=== PATIENT | female | born 1950 | race Caucasian/White ===

== ENCOUNTER 2017-01-21 15:04 | Emergency (ER) | payer OTHER ==
[~2017-01-21 15:04] MED LIST: AZITHROMYCIN 250 MG TAB PO SCH
[2017-01-21 15:14] VITALS: RESP 18
[2017-01-21] MEDS ORDERED: IPRATROPIUM/ALBUTEROL 3 ML DEYVIAL IH ONE (16:11)
--- NOTE | 2017-01-21 16:16 | EDPHY ---
H & P Time Seen by Provider: 01/21/17 16:01 HPI/ROS: HPI Cough, congestion, homeless. 66-year-old female on foot. She complains of an ongoing nonproductive cough and nasal congestion with chest congestion for the last 2-3 weeks. She reports that she was seen at an emergency department down in [place] for this same condition several days ago. He is currently homeless. She has not had a fever. She states also that she feels dirty and has no change of clothes. She denies any other complaints. ROS: Constitutional: No fever, no chills. No weakness. As above. Eyes: No discharge. No changes in vision. ENT: No sore throat. As above. Respiratory: As above. Cardiac: No chest pain, no palpitations. Gastrointestinal: No abdominal pain, no vomiting, no diarrhea. Genitourinary: No hematuria. No dysuria or increased frequency with urination. Musculoskeletal: No back pain. No neck pain. No myalgias or arthralgias. Skin: No rashes. Neurological: No headache. No focal weakness or altered sensation. Past medical history: Hypothyroid. She is not on any medications at this time except for a Synthroid. She was not given antibiotics during her emergency department visit down in [place]. Social history: History of smoking. Homeless. Physical Exam: General Appearance: Alert, no distress. Disheveled. This patient is responding to questions appropriately and in full sentences. This patient appears well-hydrated and well-nourished. Eyes: Pupils equal and round no pallor or injection. No lid edema, erythema or injection. ENT, Mouth: Mucous membranes are moist. The pharyngeal tissues are unremarkable. No edema or swelling. No asymmetry suggestive of abscess. No erythema or exudates. Respiratory: There are no retractions, lungs are clear to auscultation with good air movement bilaterally. No tachypnea. Intermittent dry cough. No voice changes. Cardiovascular: Regular rate and rhythm. No murmur. Neurological: Motor sensory function is grossly intact. Cranial nerves are normal. Gait is normal. Skin: Warm and dry, no rashes. Musculoskeletal: Neck is supple and nontender. No cervical lymphadenopathy. No stridor on auscultation of her neck. Extremities are symmetrical. All joints range without pain or impingement. Psychiatric: No agitation. No depression. Database: EKG: Imaging: Chest x-ray PA and lateral; the cardiac mediastinal silhouette is unremarkable. No evidence of infiltrate or pneumothorax. Mild bibasilar atelectasis and diffuse airway disease. No other acute cardiopulmonary disease process noted. Interpreted by me. Procedures: Emergency department course: Vital signs have been reviewed and are normal. Chest x-ray will be obtained shortly. Patient given 1 albuterol/Atrovent nebulizer. avionics manager to consult for placement at a alf. 5:00 p.m., patient re-evaluated. Resting comfortably at this time. Results of chest x-ray discussed with her. She is on the street. I have filled a prescription for azithromycin through our assistance program. She was given her 1st dose in the emergency department. Case management is working on finding her placement at a alf. I feel she is safe for discharge. Her vital signs were again reviewed and are normal. Repeat pulmonary exam she has good air movement bilaterally. No tachypnea. Pulse oximetry is in the mid to high 90s on room air. Follow-up and return to emergency department precautions were thoroughly reviewed with her. All of her questions were answered. She was discharged from the emergency department in good condition. Differential Diagnosis: The differential diagnosis on this patient includes but is not limited to bronchitis, viral upper respiratory infection. Severe hypothyroid state, pneumonia, other serious bacterial infection unlikely. This represents a partial list of diagnoses considered. These considerations are based on history , physical exam, past history, reassessment and diagnostic testing. Smoking Status: Never smoked Constitutional: Initial Vital Signs Temperature (C) 36.2 C 01/21/17 15:09 Heart Rate 76 01/21/17 15:09 Respiratory Rate 18 01/21/17 15:09 Blood Pressure 126/72 H 01/21/17 15:09 O2 Sat (%) 92 01/21/17 15:09 O2 Delivery Mode Room Air Allergies/Adverse Reactions: No Known Allergies Allergy (Unverified 01/21/17 15:07) Home Medications: Medication Instructions Recorded Azithromycin [Zithromax] 250 mg PO DAILY #6 tab 01/21/17 Medical Decision Making - Data Points Medications Given: Discontinued Medications Albuterol/Ipratropium (Duoneb) 3 ml IH EDNOW ONE Stop: 01/21/17 16:12 Last Admin: 01/21/17 16:22 Dose: 3 ml Departure - Departure Disposition: Home, Routine, Self-Care Clinical Impression: Bronchitis Condition: Good Instructions: Acute Bronchitis (ED) Additional Instructions: Read and follow provided instructions. Follow-up with your primary care physician on Monday at [facility] at their walk-in clinic on [facility] for re-evaluation and further management of your ongoing healthcare needs. Take medication as prescribed through entire course of treatment. Azithromycin ; 250 mg once daily for 4 days. Albuterol meter dose inhaler: 1-2 puffs every 2-4 hours as needed for cough and shortness of breath. Return to the emergency department for worsening cough, difficulty breathing, high fever or other serious concerns. Referrals: [facility] [Outside] - As per Instructions Prescriptions: Azithromycin [Zithromax] 250 mg PO DAILY #6 tab
[2017-01-21] MEDS ORDERED: BENZONATATE 100 MG CAP PO ONE (16:18)
[2017-01-21] MEDS ORDERED: ALBUTEROL INH PREPACK MDI TAKEHOME ONE (16:59)
[2017-01-21 17:41] VITALS: BP 120/65; PULSE 75; TEMP 98.1; O2SAT 93
== END 2017-01-21 17:58 | disposition home or self-care (01) ==
DX: J20.9 Acute bronchitis, unspecified (principal); Z87.891 Personal history of nicotine dependence

== ENCOUNTER 2017-03-23 07:20 | Emergency (ER) | payer OTHER ==
[~2017-03-23 07:20] MED LIST changes: -AZITHROMYCIN 250 MG TAB PO SCH; +LEVOTHYROXINE 125 MCG TAB PO SCH
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
[2017-03-23 08:23] LABS: % IMMATURE GRANULYOCYTES 0.3 % (0.0-1.1); ABSOLUTE IMMATURE GRANULOCYTES 0.02 10^3/uL (0.00-0.10); ADD DIFF? NO; ADD MORPH? NO; ADD SCAN? NO; ATYPICAL LYMPHOCYTE FLAG 10 (0-99); FRAGMENT RBC FLAG 0 (0-99); HEMATOCRIT 40.4 % (38.0-47.0); HEMOGLOBIN 13.4 g/dL (12.6-16.3); LEFT SHIFT FLG 0 (0-99); LIPEMIA HEMOLYSIS FLAG 80 (0-99); MEAN CELL HEMOGLOBIN 30.1 pg (27.9-34.1); MEAN CELL HEMOGLOBIN CONCENTR. 33.2 g/dL (32.4-36.7); MEAN CELL VOLUME 90.8 fL (81.5-99.8); MEAN PLATELET VOLUME 10.6 fL (8.7-11.7); PLATELET CLUMPS FLAG 10 (0-99); PLATELET COUNT 230 10^3/uL (150-400); RED BLOOD CELL COUNT 4.45 10^6/uL (4.18-5.33); RED CELL DISTRIBUTION WIDTH 15.9 % (11.5-15.2)
[2017-03-23 08:38] LABS: ANION GAP 11 mEq/L (8-16); CALCIUM 10.5 mg/dL (8.5-10.4); CARBON DIOXIDE 24 mEq/l (22-31); CHLORIDE 106 mEq/L (97-110); GLOMERULAR FILTRATION RATE 55; GLUCOSE 89 mg/dL (70-100); POTASSIUM 4.1 mEq/L (3.5-5.2); SODIUM 141 mEq/L (134-144)
[2017-03-23 09:09] LABS: T3 (TRIIODOTHYRONINE) TOTAL 0.367 ng/mL (0.970-1.690)
[2017-03-23] MEDS ORDERED: IBUPROFEN 600 MG TAB PO ONE ×2 (10:25→11:08)
[2017-03-23 11:08] VITALS: BP 136/87; PULSE 76; RESP 18; TEMP 98.5; O2SAT 91
== END 2017-03-23 11:09 | disposition home or self-care (01) ==
LOC: EDUNIT#
DX: E03.9 Hypothyroidism, unspecified (principal)
CPT/HCPCS: 84480-90; 84481-90

== ENCOUNTER 2017-09-27 00:08 | Emergency (ER) | payer SELFPAY ==
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
[2017-09-27 00:24] VITALS: TEMP 97.5
[2017-09-27] MEDS ORDERED: NS 1,000 ML IV ONE (00:26)
[2017-09-27] MEDS ORDERED: IPRATROPIUM/ALBUTEROL 3 ML DEYVIAL IH ONE (00:26)
--- NOTE | 2017-09-27 00:37 | CPEKG ---
Heart Rate: 63 RR Interval: 952 P-R Interval: 172 QRSD Interval: 80 QT Interval: 420 QTC Interval: 430 P [place]: 52 QRS [place]: 21 EKG Severity - ABNORMAL ECG - EKG Impression: SINUS RHYTHM EKG Impression: BORDERLINE INFERIOR Q WAVES EKG Impression: BORDERLINE R WAVE PROGRESSION, ANTERIOR LEADS EKG Impression: NONSPECIFIC T ABNORMALITIES, LATERAL LEADS Electronically Signed By: Mustapha Gonzalez 27-Sep-2017 07:06:34
--- NOTE | 2017-09-27 00:37 | CPEKG ---
Heart Rate: 63 RR Interval: 952 P-R Interval: 172 QRSD Interval: 80 QT Interval: 420 QTC Interval: 430 P [place]: 52 QRS [place]: 21 EKG Severity - ABNORMAL ECG - EKG Impression: SINUS RHYTHM EKG Impression: BORDERLINE INFERIOR Q WAVES EKG Impression: BORDERLINE R WAVE PROGRESSION, ANTERIOR LEADS EKG Impression: NONSPECIFIC T ABNORMALITIES, LATERAL LEADS Electronically Signed By: Mustapha Gonzalez 27-Sep-2017 07:06:34
[2017-09-27 01:21] LABS: PLATELET COUNT 227 10^3/uL (150-400)
[2017-09-27 03:24] VITALS: BP 138/95; PULSE 78; RESP 20; O2SAT 93
== END 2017-09-27 03:23 | disposition home or self-care (01) ==
LOC: EDUNIT#
DX: J20.9 Acute bronchitis, unspecified (principal); E86.9 Volume depletion, unspecified

== ENCOUNTER 2018-08-06 16:36 | Emergency (ER) | payer OTHER ==
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
[2018-08-06 17:34] LABS: PLATELET COUNT 261 10^3/uL (150-400)
[2018-08-06] MEDS ORDERED: CEPHALEXIN 500 MG CAP PO ONE (19:00)
[2018-08-07] MEDS ORDERED: LEVOTHYROXINE 125 MCG TAB PO SCH (06:00)
[2018-08-07] MEDS ORDERED: CEPHALEXIN 500 MG CAP PO SCH ×2 (06:00)
[2018-08-07 11:30] VITALS: BP 144/100
== END 2018-08-07 11:27 | disposition home or self-care (01) ==
LOC: EDUNIT#
DX: F25.9 Schizoaffective disorder, unspecified (principal); N39.0 Urinary tract infection, site not specified
CPT/HCPCS: 80305; G0480

== ENCOUNTER 2018-08-08 01:23 | Emergency (ER) | payer OTHER ==
[2018-08-08] MEDS ORDERED: IPRATROPIUM/ALBUTEROL 3 ML DEYVIAL IH ONE (01:43)
[2018-08-08] MEDS ORDERED: IPRATROPIUM/ALBUTEROL 3 ML DEYVIAL ONE (01:43)
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
[2018-08-08] MEDS ORDERED: ALBUTEROL INH PREPACK MDI TAKEHOME ONE ×2 (03:28→05:58)
[2018-08-08 06:22] VITALS: BP 145/80
== END 2018-08-08 06:35 | disposition home or self-care (01) ==
DX: J20.9 Acute bronchitis, unspecified (principal); E03.9 Hypothyroidism, unspecified

== ENCOUNTER 2018-08-14 15:13 | Emergency (ER) | payer SELFPAY ==
--- NOTE | 2018-08-14 15:42 | EDPHY ---
H & P Smoking Status: Never smoked Time Seen by Provider: 08/14/18 15:18 HPI/ROS: HPI Delusional behavior. 68-year-old female on an M1 hold brought to the emergency department by [place] police from the [facility] which is a transitional housing organization. She went to the [facility] earlier today. She is currently staying at the prison. She is looking for more permanent housing. They felt that she was acutely psychotic, paranoid and delusional. They called police to have her evaluated. She was then placed on an M1 hold and brought here. No history of trauma or assault. The patient denies alcohol or other drugs. She is not suicidal. She told police that satellites for watching her and the government was out to get her. ROS: Constitutional: No fever, no chills. No weakness. Eyes: No discharge. No changes in vision. ENT: No sore throat. No nasal congestion or rhinorrhea. Respiratory: No cough. No shortness of breath. Cardiac: No chest pain, no palpitations. Gastrointestinal: No abdominal pain, no vomiting, no diarrhea. Genitourinary: No hematuria. No dysuria or increased frequency with urination. Musculoskeletal: No back pain. No neck pain. No myalgias or arthralgias. Skin: No rashes. Neurological: No headache. No focal weakness or altered sensation. Past medical history: Schizoaffective disorder, urinary tract infection. Social history: Currently homeless. Nonsmoker. No alcohol. Denies IV drugs and street drugs. Physical Exam: General Appearance: Alert, mildly manic. This patient is responding to questions appropriately and in full sentences. This patient appears well- hydrated and well-nourished. Eyes: Pupils equal and round no pallor or injection. No lid edema, erythema or injection. Respiratory: There are no retractions, lungs are clear to auscultation with good air movement bilaterally. Cardiovascular: Regular rate and rhythm. No murmur. Gastrointestinal: Abdomen is soft and nontender, no masses, bowel sounds normal. No focal tenderness at McBurney's point. No Suresh sign. Neurological: Motor sensory function is grossly intact. Cranial nerves are normal. Gait is normal. Skin: Warm and dry, no rashes. Musculoskeletal: Neck is supple and nontender. Extremities are symmetrical. All joints range without pain or impingement. Psychiatric: No agitation. No depression. Manic with tangential thoughts. Database: EKG: Imaging: Procedures: Emergency department course: Triage vital signs reviewed. She was medically cleared by myself at 3:50 p.m.. Behavioral Health is [facility]. 11:00 p.m., the patient has been seen and evaluated by Behavioral Health. [facility] While she remains in the emergency department, care turned over to Dr. Mustapha Gonzalez at this time. Differential Diagnosis: The differential diagnosis on this patient includes but is not limited to psychosis, schizophrenia, schizoaffective disorder. Major depression, suicidal ideation unlikely. This represents a partial list of diagnoses considered. These considerations are based on history, physical exam, past history, reassessment and diagnostic testing. (Kavita Galvan) Constitutional: Initial Vital Signs Temperature (C) 36.9 C 08/14/18 15:55 Heart Rate 62 08/14/18 15:55 Respiratory Rate 18 08/14/18 15:55 Blood Pressure 164/102 H 08/14/18 15:55 O2 Sat (%) 96 08/14/18 15:55 O2 Delivery Mode Room Air Allergies/Adverse Reactions: No Known Allergies Allergy (Verified 08/08/18 01:27) Home Medications: Medication Instructions Recorded Cephalexin [Keflex (*)] 500 mg PO Q6 5 Days cap 08/07/18 Medical Decision Making ED Course/Re-evaluation: 3068: Patient has been accepted at [facility] by JEWEL Shrestha Form filled out. [facility] Transfer will bet set up. (Mustapha Gonzalez) - Data Points Laboratory Results: Laboratory Results 08/14/18 20:36 08/14/18 16:50 08/14/18 08/14/18 08/14/18 20:36 17:50 16:50 WBC 8.48 10^3/uL 10^3/uL (3.80-9.50) RBC 3.82 10^6/uL L 10^6/uL (4.18-5.33) Hgb 12.0 g/dL L g/dL (12.6-16.3) Hct 36.7 % L % (38.0-47.0) MCV 96.1 fL fL (81.5-99.8) MCH 31.4 pg pg (27.9-34.1) MCHC 32.7 g/dL g/dL (32.4-36.7) RDW 16.0 % H % (11.5-15.2) Plt Count 262 10^3/uL 10^3/uL (150-400) MPV 10.4 fL fL (8.7-11.7) Neut % (Auto) 67.5 % % (39.3-74.2) Lymph % (Auto) 25.2 % % (15.0-45.0) [place] % (Auto) 4.0 % L % (4.5-13.0) Eos % (Auto) 1.9 % % (0.6-7.6) Baso % (Auto) 0.8 % % (0.3-1.7) Nucleat RBC Rel Count 0.0 % % (0.0-0.2) Absolute Neuts (auto) 5.72 10^3/uL 10^3/uL (1.70-6.50) Absolute Lymphs (auto) 2.14 10^3/uL 10^3/uL (1.00-3.00) Absolute Monos (auto) 0.34 10^3/uL 10^3/uL (0.30-0.80) Absolute Eos (auto) 0.16 10^3/uL 10^3/uL (0.03-0.40) Absolute Basos (auto) 0.07 10^3/uL 10^3/uL (0.02-0.10) Absolute Nucleated RBC 0.00 10^3/uL 10^3/uL (0-0.01) Immature Gran % 0.6 % % (0.0-1.1) Immature Gran # 0.05 10^3/uL 10^3/uL (0.00-0.10) Sodium 137 mEq/L mEq/L (135-145) Potassium 3.8 mEq/L mEq/L (3.3-5.0) Chloride 109 mEq/L mEq/L (97-110) Carbon Dioxide 17 mEq/l L mEq/l (22-31) Anion Gap 11 mEq/L mEq/L (8-16) BUN 19 mg/dL mg/dL (7-23) Creatinine 0.9 mg/dL mg/dL (0.6-1.0) Estimated GFR > 60 Glucose 81 mg/dL mg/dL (70-100) Calcium 9.6 mg/dL mg/dL (8.5-10.4) Urine Color YELLOW Urine Appearance HAZY Urine pH 6.0 (5.0-7.5) Ur Specific [place] 1.017 (1.002-1.030) Urine Protein NEGATIVE (NEGATIVE) Urine Ketones NEGATIVE (NEGATIVE) Urine Blood NEGATIVE (NEGATIVE) Urine Nitrate NEGATIVE (NEGATIVE) Urine Bilirubin NEGATIVE (NEGATIVE) Urine Urobilinogen 4.0 EU H EU (0.2-1.0) Ur Leukocyte Esterase NEGATIVE (NEGATIVE) Urine RBC 1-3 /hpf /hpf (0-3) Urine WBC 10-15 /hpf H /hpf (0-3) Ur Epithelial Cells TRACE /lpf /lpf (NONE-1+) Urine Bacteria TRACE /hpf H /hpf (NONE SEEN) Urine Mucus TRACE /lpf /lpf (NONE-1+) Urine Glucose NEGATIVE (NEGATIVE) Urine Opiates Screen NEGATIVE (NEGATIVE) Urine Barbiturates NEGATIVE (NEGATIVE) Ur Phencyclidine Scrn NEGATIVE (NEGATIVE) Ur Amphetamine Screen NEGATIVE (NEGATIVE) U Benzodiazepines Scrn NEGATIVE (NEGATIVE) Urine Cocaine Screen NEGATIVE (NEGATIVE) U Marijuana (THC) Screen NEGATIVE (NEGATIVE) Ethyl Alcohol < 10 mg/dL mg/dL (0-10) 08/14/18 16:50 WBC REJ RBC Not Reported Hgb Not Reported Hct Not Reported MCV Not Reported MCH Not Reported MCHC Not Reported RDW Not Reported Plt Count Not Reported MPV Not Reported Neut % (Auto) Not Reported Lymph % (Auto) Not Reported [place] % (Auto) Not Reported Eos % (Auto) Not Reported Baso % (Auto) Not Reported Nucleat RBC Rel Count Not Reported Absolute Neuts (auto) Not Reported Absolute Lymphs (auto) Not Reported Absolute Monos (auto) Not Reported Absolute Eos (auto) Not Reported Absolute Basos (auto) Not Reported Absolute Nucleated RBC Not Reported Immature Gran % Not Reported Immature Gran # Not Reported Sodium Potassium Chloride Carbon Dioxide Anion Gap BUN Creatinine Estimated GFR Glucose Calcium Urine Color Urine Appearance Urine pH Ur Specific [place] Urine Protein Urine Ketones Urine Blood Urine Nitrate Urine Bilirubin Urine Urobilinogen Ur Leukocyte Esterase Urine RBC Urine WBC Ur Epithelial Cells Urine Bacteria Urine Mucus Urine Glucose Urine Opiates Screen Urine Barbiturates Ur Phencyclidine Scrn Ur Amphetamine Screen U Benzodiazepines Scrn Urine Cocaine Screen U Marijuana (THC) Screen Ethyl Alcohol Departure - Departure Disposition: Other Psych, Not [place] Clinical Impression: Delusional disorder Condition: Good Referrals: Patient,NotPresent [Unknown] - As per Instructions
[2018-08-14 20:54] LABS: PLATELET COUNT 262 10^3/uL (150-400)
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
[2018-08-14 22:32] VITALS: BP 119/66
--- NOTE | 2018-08-14 23:04 | CPEKG ---
Test Reason : OPEN Blood Pressure : / mmHG Vent. Rate : 063 BPM Atrial Rate : 063 BPM P-R Int : 194 ms QRS Dur : 088 ms QT Int : 569 ms P-R-T Axes : 041 020 198 degrees QTc Int : 583 ms Sinus rhythm Low voltage, precordial leads Nonspecific T abnormalities, diffuse leads Prolonged QT interval Confirmed by Kavita Galvan ([id number]) on 08/14/2018 11:04:12 PM Referred By: Confirmed By:Kavita Galvan
--- NOTE | 2018-08-15 06:22 | ASMTTCLDSP ---
TLC Discharge Disposition Disposition: Answers: Transfer Disposition Notes: Notes: Accepted for placement at [facility] unit at [facility]. Discharge Concerns/Recommendations: Notes: In consultation with [facility] ED physician,Felix Carpenter MD and [facility] on-call psychiatrist, Angeli Hartmann MD, both concurred that pt appears to meet 27-65 criteria requiring psychiatric hospitalization as the patient appears to be an imminent risk of harm to gravely disabled due to a mental illness condition. Was patient given the Answers: Not applicable Inpatient Behavioral Health Prohibited Belongings List while in the ED? Type of Hold: Answers: M1/72-hour Hold Hold initiated by: Answers: Other Notes: [facility] clinician For Transfers, Accepting [facility] Facility: For Transfers, Accepting Dr. Borja Psychiatrist: For Transfers, Reason [facility] placement Patient is Being Transferred: Date Signed: 08/15/2018 06:20 AM Electronically Signed By:Jaciel Humphries
== END 2018-08-15 01:55 ==
LOC: EDUNIT#
DX: F22 Delusional disorders (principal); F25.0 Schizoaffective disorder, bipolar type; Z59.0 Homelessness
CPT/HCPCS: 80305; G0480